=== PATIENT | female | born 1970 | race Caucasian/White ===

== ENCOUNTER → 2023-05-20 08:02 | Outpatient (CLI) | payer OTHER, SELFPAY ==
--- NOTE | ~2023-05-20 | MMUS_ITS ---
EXAMINATION: MM diagnostic chidi BI w magy, US breast BI complete HISTORY: 10:00 right breast lump TECHNIQUE: Full field and spot ML, MLO and CC right and full field ML, MLO and CC left 3-D tomosynthe sis images were performed and synthetic 2-D images were generated. CAD analysis was submitted and int erpreted. High resolution complete bilateral breast ultrasound was performed. COMPARISON: 03/06/2018 bilateral screening mammogram BREAST PARENCHYMAL COMPOSITION: The breasts are extremely dense, which lowers the sensitivity of mamm ography. FINDINGS: MAMMOGRAPHIC FINDINGS: There is asymmetric nodular density in the upper right breast on ML view in particular. The extremely dense fibroglandular stroma may obscure masses in either breast; complete bilateral minoo ast ultrasound examination was performed. No malignant calcification, skin thickening or retraction is detected. ULTRASOUND: Right breast: At the area of clinical complaint at 10:00 9 cm from the nipple there is a complex cystic lesion james uring approximately 6.8 x 11 mm. There is some through-transmission and posterior enhancement. The ma rgins are not completely circumscribed. Ultrasound-guided biopsy is recommended. No other suspicious mass or any suspicious shadowing of the right breast is detected. Left breast: 2:00 5 cm from nipple: Parallel circumscribed benign-appearing probable lymph node, measuring approxi mately 2.5 x 7.8 mm. No suspicious mass or shadowing of the left breast is detected. IMPRESSION: 1. Incompletely circumscribed complex lesion of right breast at 10:00 9 cm from the nipple 2. Ultrasound-guided biopsy right breast 10:00 lesion is recommended BI-RADS category 4, suspicious findings. Dr. Bustamante telephoned the report and ultrasound-guided biopsy recommendation on 05/20/2023 at 0959 hour s to Kandice. Reviewed, dictated and finalized at location B. IMPRESSION: 1. Incompletely circumscribed complex lesion of right breast at 10:00 9 cm from the nipple 2. Ultrasound-guided biopsy right breast 10:00 lesion is recommended BI-RADS category 4, suspicious findings. Dr. Bustamante telephoned the report and ultrasound-guided biopsy recommendation on at 0959 hours to Kandice.
== END ==
PROVIDERS: PCP Family Medicine Sports Medicine
DX: Z12.31 Encounter for screening mammogram for malignant neoplasm of breast (principal); N63.31 Unspecified lump in axillary tail of the right breast; R92.8 Other abnormal and inconclusive findings on diagnostic imaging of breast
CPT/HCPCS: 76641; 77062; 77066; G0279